=== PATIENT | female | born 1985 | race Caucasian/White ===

== ENCOUNTER → 2018-01-13 16:26 | Outpatient (CLI) | payer SELFPAY ==
[2018-01-13 20:46] LABS: Chlamydia Trachomatis by PCR Negative (Negative); Neisserai gonorrhoeae by PCR Negative (Negative)
[2018-01-13 20:47] LABS: Probe Check PASS; Sample Adequacy Control PASS; Specimen Processing Control PASS
[2018-01-16 09:06] LABS: HPV Reflexed? NOT INDICATED
== END ==
PROVIDERS: Visit Provider Obstetrics & Gynecology
DX: Z12.4 Encounter for screening for malignant neoplasm of cervix (principal); Z11.3 Encounter for screening for infections with a predominantly sexual mode of transmission
CPT/HCPCS: 87491; 87591; 88175; G0145

== ENCOUNTER → 2018-01-27 16:13 | Outpatient (CLI) | payer SELFPAY ==
[2018-01-27 17:13] LABS: Absolute Lymphocyte Count 1.88 X10^3/ul (0.83-4.51); Absolute Neutrophil Count 4.8 X10^3/uL (2.0-7.7); Basophil# 0.02 X10^3/uL; Basophil% 0.3 % (0-1); Eosinophil# 0.06 X10^3/uL; Eosinophils% 0.8 % (0-5); Hematocrit 38.3 % (37-47); Hemoglobin 12.9 g/dl (12.0-15.0); Lymphocyte # 1.88 X10^3/ul (4.0); Lymphocyte % 26.3 % (19-41); Mean Corp Hgb Conc 33.7 g/gl (32-36); Mean Corpuscular Hgb 29.9 pg (27.0-32.0); Mean Corpuscular Volume 88.9 fL (81-99); Mean Platelet Vol. 12.3 fl (6.2-12.0); Monocyte# 0.43 X10^3/uL; Neutrophil # 4.76 X10^3/uL (2.7-7.7); Neutrophil % 66.6 % (47-70); Platelet Count 165 K/mm3 (150-450); RBC Distribution Width CV 12.8 % (11.6-14.6); RBC Distribution Width SD 41.1 fl (35.1-43.9); Red Blood Count 4.31 M/mm3 (4.2-5.4); White Blood Count 7.2 K/mm3 (4.4-11.0)
[2018-01-27 17:15] LABS: Color, Urine Amber (Yellow); Glucose, Dipstick Normal (Normal); Ketone-Dipstick 5 mg/dl (Negative); Leukocyte Esterase-Dipstick 500 /ul (Negative); Nitrite-Dipstick Negative (Negative); Occult Blood-Urine 10 /ul (Negative); POSITIVE COUNT NO; POSITIVE DIFFERENTIAL NO; POSITIVE MORPHOLOGY NO; Protein-Dipstick 15 mg/dl (Negative); Urine Bilirubin Dipstick Negative (Negative); Urine Clarity Cloudy (Clear); Urine Urobilinogen 1 mg/dl (Normal)
[2018-01-27 17:41] LABS: Amphetamine Urine VISTA NEGATIVE (<1000 ng/mL); Barbiturate Urine VISTA NEGATIVE (< 200 ng/mL); Benzodiazepine Urine VISTA NEGATIVE (< 200 ng/mL); Cocaine Urine VISTA NEGATIVE (< 300 ng/mL); Ecstacy Urine VISTA NEGATIVE (< 500 ng/mL); Methadone Urine VISTA NEGATIVE (< 300 ng/mL); PCP Urine VISTA NEGATIVE (< 25 ng/mL); THC Urine VISTA NEGATIVE (< 50 ng/mL); Vista UDS pH Range 5
[2018-01-27 18:05] LABS: COTININE Drug Screen Negative (<200 ng/mL)
[2018-01-27 18:14] LABS: HIV - WCH Non-Reactive (Nonreactive); Rubella IgG 27.8 IU/mL
[2018-01-29 11:32] LABS: HEPATITIS B SURFACE AG Negative (Negative); Hep C Antibodies <0.1 s/co ratio (0.0-0.9)
[2018-01-31 02:59] LABS: Prenatal RPR NONREACTIVE (NONREACTIVE)
== END ==
PROVIDERS: Visit Provider Obstetrics & Gynecology
DX: Z34.82 Encounter for supervision of other normal pregnancy, second trimester (principal)
CPT/HCPCS: 36415; 80307; 81002; 84443; 85025; 86703; 86762; 86803; 87340

== ENCOUNTER → 2018-05-01 13:15 | Outpatient (CLI) | payer MEDICAID, SELFPAY ==
[2018-05-01 16:10] LABS: Hematocrit 34.3 % (37-47); Hemoglobin 11.3 g/dl (12.0-15.0); Mean Corp Hgb Conc 32.9 g/gl (32-36); Mean Corpuscular Hgb 29.8 pg (27.0-32.0); Mean Corpuscular Volume 90.5 fL (81-99); Mean Platelet Vol. 12.7 fl (6.2-12.0); Platelet Count 148 K/mm3 (150-450); RBC Distribution Width CV 13.1 % (11.6-14.6); RBC Distribution Width SD 42.8 fl (35.1-43.9); Red Blood Count 3.79 M/mm3 (4.2-5.4); White Blood Count 8.5 K/mm3 (4.4-11.0)
[2018-05-01 16:18] LABS: Scan Indicated on CBC? Y/N NO
[2018-05-01 16:39] LABS: Glucose Challenge Gest 1H 50g 160 mg/dL (70-140)
== END ==
PROVIDERS: Visit Provider Obstetrics & Gynecology
DX: Z34.83 Encounter for supervision of other normal pregnancy, third trimester (principal)
CPT/HCPCS: 36415; 82950; 85027; 86850

== ENCOUNTER → 2018-05-12 09:47 | Outpatient (CLI) | payer MEDICAID, SELFPAY ==
[2018-05-12 10:37] LABS: Glucose GTT-Gestation. Fasting 86 mg/dL (<105)
[2018-05-12 11:29] LABS: Glucose GTT-Gestational 1 Hr 182 mg/dL (<190)
[2018-05-12 12:53] LABS: Glucose GTT-Gestational 2 Hr 173 mg/dL (<165)
[2018-05-12 14:16] LABS: Glucose GTT-Gestational 3 Hr 108 L (<145)
== END ==
PROVIDERS: Referring Provider Obstetrics & Gynecology; Visit Provider Obstetrics & Gynecology
DX: O24.912 Unspecified diabetes mellitus in pregnancy, second trimester (principal); Z3A.00 Weeks of gestation of pregnancy not specified
CPT/HCPCS: 36415; 82951; 82952

== ENCOUNTER → 2018-06-26 16:16 | Outpatient (CLI) | payer MEDICAID, SELFPAY | PROVIDERS: Visit Provider Obstetrics & Gynecology | DX: Z36.85 Encounter for antenatal screening for Streptococcus B (principal) | CPT/HCPCS: 87077; 87081; 87186 ==

== ENCOUNTER 2018-07-18 07:49 | Inpatient (IN) | payer MEDICAID, SELFPAY ==
[2018-07-18 07:46] LABS: ROM Internal Control Test YES-OK TO RESULT pt. (Internal QC)
[2018-07-18 07:47] LABS: ROM Patient Test POSITIVE (Negative); Record Kit Lot#, ROM+ J7836
[2018-07-18 08:33] VITALS: BMI 42.7
[2018-07-18] MEDS: Lactated Ringers 1,000 ML 50 ML IV ×2 (08:49→13:09)
[2018-07-18 08:51] LABS: Absolute Lymphocyte Count 1.57 X10^3/ul (0.83-4.51); Absolute Neutrophil Count 6.8 X10^3/uL (2.0-7.7); Basophil# 0.01 X10^3/uL; Basophil% 0.1 % (0-1); Eosinophil# 0.13 X10^3/uL; Eosinophils% 1.4 % (0-5); Hematocrit 32.6 % (37-47); Hemoglobin 10.7 g/dl (12.0-15.0); Lymphocyte # 1.57 X10^3/ul (4.0); Lymphocyte % 17.3 % (19-41); Mean Corp Hgb Conc 32.8 g/gl (32-36); Mean Corpuscular Volume 88.3 fL (81-99); Mean Platelet Vol. 13.4 fl (6.2-12.0); Monocyte# 0.51 X10^3/uL; Monocyte% 5.6 % (0-10); Neutrophil % 75.2 % (47-70); POSITIVE COUNT NO; POSITIVE DIFFERENTIAL NO; POSITIVE MORPHOLOGY NO; Platelet Count 101 K/mm3 (150-450); RBC Distribution Width CV 13.4 % (11.6-14.6); RBC Distribution Width SD 40.4 fl (35.1-43.9); Red Blood Count 3.69 M/mm3 (4.2-5.4); White Blood Count 9.1 K/mm3 (4.4-11.0)
--- NOTE | 2018-07-18 10:37 | NURSING ---
DEV De Paz and DEV Jackson assuming care from DEV Valadez at 0900.
[2018-07-18] MEDS: Oxytocin 30 units/NS 500 ml 30 UNITS/500 ML IV.SOLN IV (11:30)
--- NOTE | 2018-07-18 12:50 | PCM.PN.BLA ---
Progress Note LABOR PROGRESS NOTE Uncomfortable with UCs now , pitocin just turned up to 4 mIU/min Declines pain med, declines epidural for now AVSS pitocin at 4 mIU/min EFM 120-130s with avg variability . Mild variables noted. + accels UCs were q 6 mins, last few q 3 mins CX: deferred. 05/31 SROM this am A/P; term IUP SROM pitocin induction. Continue pitocin watch progress descent. Consider IUPC with next cervix check.
[2018-07-18] MEDS: Nalbuphine 10 MG/ML Ampul IV (14:12)
[2018-07-18] MEDS: Amnioinfusion- 0.9% NS 1,000 ML IV.SOLN. INTRA-UTER (16:02)
[2018-07-18] MEDS: Oxytocin 30 units/NS 500 ml 30 UNITS/500 ML IV.SOLN 334 UNITS IV (17:01)
--- NOTE | 2018-07-18 17:10 | OP.PCM_ITS ---
Vaginal Delivery Maternal Presentation: Spontaneous Rupture of Membranes 39 2/7 wk SROM at home, induction Method of Induction: Pitocin Medical Reason for Induction: - - SROM at home Amniotic Membrane Rupture Type: Spontaneous at home Amniotic Fluid Description: Clear Final ROSY: 07/23/18 Gestational age: 39 Weeks and 2 Days Date of Procedure: 07/18/18 Pre-Operative Diagnosis: 39 2/7 wk SROM Post-Operative Diagnosis: same Surgery/ Procedure Performed: Spontaneous Vaginal Delivery Type of Anesthesia: None Description of Procedure: Involuntary pushing began at 6 cm. Continued to push involuntarily and eventually agreed to hands and knees for several UCs. Pitocin up to 10 mIU/min, then off, IV fluid bolus given and Amnioinfusion for variables with pushing. baseline HR 110-120s with decels to 60-90s. of a dennis viable female over intact perineum Head delivered KADIE. Op and nares bulb suctioned at perineum. no nuchal cord. Shoulder delivered easily. to maternal abdomen. Cord clamped x two and cut. infant then to isolette due to maternal exhaustion routine cord gases, and cord blood for typing collected. PP exam: no lacerations, no repair. Placenta delivered by spont expulsion, expression. 3V cord, normal appearing and intact with trailing membranes. EBL 350 cc [place] and ray ni counts correct x two. Presentation: Vertex Placental Delivery Description: Spontaneous, Expressed Cord Vessel Description: 3 Vessels Cord Gases drawn per routine: ABG, VBG Cord Entanglement: None Estimated Blood Loss: 350 Infant A gender: Female (1 minute): 8 (5 minute): 9 Episiotomy Description: None Laceration: None Medications given after delivery: IV Pitocin Complications: None
--- NOTE | 2018-07-18 17:11 | PCM.DCVAG ---
Discharge Diet: No Restrictions Discharge Activity: May Shower, May Take a Tub Bath May resume sexual activity in: 4-6 weeks Additional Activity Instructions:: Nothing in the vagina for 4-6 weeks. You may return to work/school in 6 weeks. Additional Instructions: If you experience any of the following, contact your healthcare provider. Bleeding that soaks a pad every hour for 2 hours Fever 100.4 or higher Unrelieved abdominal pain Problems urinating (including inability to urinate or burning while urinating). Visual changes Severe headache Flu-like symptoms Pain or redness in one of both of your breasts Pain, warmth, tenderness or swelling in your legs, especially the calf area Frequent nausea and vomiting Symptoms of depression or anxiety If you experience any of the following, call 911 or go to the nearest Emergency Room. Chest pain Problems breathing Seizure activity Partial or complete paralysis of a body part, slurred speech, weakness or drooping of the face, or a sudden inability to walk or hold your balance Allergies/Adverse Reactions: Allergies No Known Allergies Allergy (Verified 07/18/18 09:37) Medications to take at Discharge Vits [Prenatabs FA] 1 tablet PO DAILY 07/18/18 Please Follow Up With: Raciel Pat MD - [phone] When: Call to make an appointment with your doctor in 6 weeks. Primary Care Physician: Care Physician,No Primary [Primary Care Provider] - Test Results: Test results from this visit will be discussed in further detail at your follow-up appointment, if applicable. Proposed Discharge Date: 07/20/18
--- NOTE | 2018-07-18 17:12 | DCINST_ITS ---
Discharge Diet: No Restrictions Discharge Activity: May Shower, May Take a Tub Bath May resume sexual activity in: 4-6 weeks Additional Activity Instructions:: Nothing in the vagina for 4-6 weeks. You may return to work/school in 6 weeks. Additional Instructions: If you experience any of the following, contact your healthcare provider. * Bleeding that soaks a pad every hour for 2 hours * Fever 100.4 or higher * Unrelieved abdominal pain * Problems urinating (including inability to urinate or burning while urinating). * Visual changes * Severe headache * Flu-like symptoms * Pain or redness in one of both of your breasts * Pain, warmth, tenderness or swelling in your legs, especially the calf area * Frequent nausea and vomiting * Symptoms of depression or anxiety If you experience any of the following, call 911 or go to the nearest Emergency Room. * Chest pain * Problems breathing * Seizure activity * Partial or complete paralysis of a body part, slurred speech, weakness or drooping of the face, or a sudden inability to walk or hold your balance Allergies/Adverse Reactions: Allergies No Known Allergies Allergy (Verified 07/18/18 09:37) Medications to take at Discharge Vits [Prenatabs FA] 1 tablet PO DAILY 07/18/18 Please Follow Up With: Raciel Pat MD - [phone] When: Call to make an appointment with your doctor in 6 weeks. Primary Care Physician: Care Physician,No Primary [Primary Care Provider] - Test Results: Test results from this visit will be discussed in further detail at your follow- up appointment, if applicable. Proposed Discharge Date: 07/20/18
[2018-07-18] MEDS: Oxytocin 30 units/NS 500 ml 30 UNITS/500 ML IV.SOLN 167 UNITS IV (17:31)
[2018-07-18 19:30] VITALS: BP 120/71; PULSE 80; RESP 16; TEMP 36.7
[2018-07-18 23:20] VITALS: BP 126/69; PULSE 94; RESP 18; TEMP 37.2
[2018-07-19 04:10] VITALS: BP 122/70; PULSE 89; RESP 18; TEMP 36.8
--- NOTE | 2018-07-19 07:09 | PCM.PN.OB ---
Subjective: PPD#1 Doing well. baby is A positive Pt uncertain if she got her RhoGAM yet, but will be given. Plans to bottle feed. Pain control adequate - Physical Exam General: Alert, Oriented x3, Cooperative, No apparent distress HEENT: Atraumatic Neck: Supple Abdomen: Soft, Non Tender, Obese Psych/Mental Status: Normal Affect Vital Signs Temp Pulse Resp BP 98.3 F 89 18 122/70 H 07/19/18 04:10 07/19/18 04:10 07/19/18 04:10 07/19/18 04:10 Oxygen Delivery Method Room Air Weight: 123.831 kg Body Mass Index (BMI) 42.7 Intake and Output for Last 24 Hours 07/17/18 07/18/18 07/19/18 23:59 23:59 23:59 Intake Total 650 / 650 Output Total 400 / 400 Balance -400 / -400 650 / 650 Laboratory Tests Past 24 Hrs 07/18/18 07/18/18 07/18/18 07:30 08:22 08:22 WBC 9.1 RBC 3.69 L Hgb 10.7 L Hct 32.6 L MCV 88.3 MCH 29.0 MCHC 32.8 RDW 13.4 RDW Differential 40.4 Plt Count 101 L MPV 13.4 H Immature Gran % (Auto) 0.400 Neut % (Auto) 75.2 H Lymph % (Auto) 17.3 L [place] % (Auto) 5.6 Eos % (Auto) 1.4 Baso % (Auto) 0.1 Absolute Neuts (auto) 6.8 Absolute Lymphs (auto) 1.57 Total Counted Not Reportable Vag Amniotic Fld Detect POSITIVE H Blood Type A NEGATIVE Antibody Screen NEGATIVE Screen Baby's Blood Type Baby's STEPHANY 07/18/18 18:40 WBC RBC Hgb Hct MCV MCH MCHC RDW RDW Differential Plt Count MPV Immature Gran % (Auto) Neut % (Auto) Lymph % (Auto) [place] % (Auto) Eos % (Auto) Baso % (Auto) Absolute Neuts (auto) Absolute Lymphs (auto) Total Counted Vag Amniotic Fld Detect Blood Type Antibody Screen Screen NEGATIVE Baby's Blood Type A POSITIVE Baby's STEPHANY NEGATIVE Medical Necessity - Tobacco Use Smoking Status: Former smoker Assessment/Plan PPD#1 Stable pp. continue routine care. RhoGAM today.
[2018-07-19 10:00] VITALS: BP 111/70; PULSE 84; RESP 16; TEMP 37.1
[2018-07-19 14:00] VITALS: BP 114/72; PULSE 90; RESP 18; TEMP 36.6
[2018-07-19 16:02] LABS: Hematocrit 27.8 % (37-47); Hemoglobin 9.3 g/dl (12.0-15.0); Mean Corp Hgb Conc 33.5 g/gl (32-36); Mean Corpuscular Hgb 29.2 pg (27.0-32.0); Mean Corpuscular Volume 87.1 fL (81-99); Mean Platelet Vol. 11.9 fl (6.2-12.0); Platelet Count 111 K/mm3 (150-450); RBC Distribution Width CV 13.8 % (11.6-14.6); RBC Distribution Width SD 43.3 fl (35.1-43.9); Red Blood Count 3.19 M/mm3 (4.2-5.4); White Blood Count 8.3 K/mm3 (4.4-11.0)
[2018-07-19 16:04] LABS: Scan Indicated on CBC? Y/N NO
--- NOTE | 2018-07-19 16:52 | NURSING ---
1545 CBC drawn and sent to lab, dada garcia.
[2018-07-19 19:45] VITALS: BP 118/71; PULSE 92; RESP 16; TEMP 37.1
[2018-07-20] MEDS: Acetaminophen 500 MG Tablet 1000 MG PO (00:19)
[2018-07-20 02:15] VITALS: BP 116/69; PULSE 78; RESP 16; TEMP 36.8
--- NOTE | 2018-07-20 07:30 | PN.OBGYN_ITS ---
Subjective: PPD#2 Doing well. 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 Pain control adequate. No concerns voiced. Bottle feeding baby. Repeat hearing screen planned today prior to dischg as baby did not pass screening in R ear. - Physical Exam General: Alert, Oriented x3, Cooperative, No apparent distress HEENT: Atraumatic Neck: Supple Abdomen: Soft - Fundus firm NT inferior to umbilicus Psych/Mental Status: Normal Affect Vital Signs Temp Pulse Resp BP 98.3 F 78 16 116/69 07/20/18 02:15 07/20/18 02:15 07/20/18 02:15 07/20/18 02:15 Oxygen Delivery Method Room Air Weight: 123.831 kg Body Mass Index (BMI) 42.7 Intake and Output for Last 24 Hours 07/18/18 07/19/18 07/20/18 23:59 23:59 23:59 Intake Total 650 / 650 Output Total 400 / 400 Balance -400 / -400 650 / 650 Laboratory Tests Past 24 Hrs 07/19/18 15:45 WBC 8.3 RBC 3.19 L Hgb 9.3 L Hct 27.8 L MCV 87.1 MCH 29.2 MCHC 33.5 RDW 13.8 RDW Differential 43.3 Plt Count 111 L MPV 11.9 Medical Necessity - Tobacco Use Smoking Status: Former smoker Assessment/Plan PPD# Stable pp. Dischg home RTO in 6 wk for pp check, prn sooner.
[2018-07-20 09:00] VITALS: BP 126/86; PULSE 93; RESP 14; TEMP 36.7
[2018-07-20 13:33] VITALS: BP 134/83; PULSE 84; RESP 16; TEMP 36.6
== END 2018-07-20 13:45 | disposition home or self-care (01) | DRG 560 ==
LOC: WPOUT 07:49
PROVIDERS: Obstetrics & Gynecology; Admitting Provider Obstetrics & Gynecology; Referring Provider Obstetrics & Gynecology; Visit Provider Obstetrics & Gynecology
DX: O75.9 Complication of labor and delivery, unspecified (principal); O98.82 Other maternal infectious and parasitic diseases complicating childbirth; B95.1 Streptococcus, group B, as the cause of diseases classified elsewhere; Z3A.39 39 weeks gestation of pregnancy; Z37.0 Single live birth
CPT/HCPCS: 59025; 59050; 84112; 85025; 85027; 85461; 86850; 86900; 90384; 99218; J7030; J7120; G0378; J2790

== ENCOUNTER → 2018-09-24 14:58 | Outpatient (CLI) | payer BC, MEDICAID, SELFPAY ==
[2018-09-24 16:22] LABS: Progesterone Level 0.83 ng/mL (See Comment)
[2018-09-24 16:24] LABS: Internal QC Validated? YES +Cl - CLEAR BKGD; Pregnancy, Serum, hCG Quali. NEGATIVE Negative
== END ==
PROVIDERS: Visit Provider Obstetrics & Gynecology
DX: Z30.013 Encounter for initial prescription of injectable contraceptive (principal)
CPT/HCPCS: 36415; 84144; 84703